=== PATIENT | female | born 1990 | race Caucasian/White ===

== ENCOUNTER 2023-07-21 10:28 | Inpatient (IN) ==
[2023-07-21] MEDS ORDERED: Lidocaine 1% VIAL 10 MG/ML 30 ML VIAL INJ PRN (13:16)
[2023-07-21] MEDS ORDERED: Lactated Ringers 1000 ml BAG 1,000 ML IV ONE (13:16)
[2023-07-21] MEDS ORDERED: Buffered Lidocaine 1% SYRIN 1 ml INTRADERM ONE (13:16)
[2023-07-21] MEDS ORDERED: Lactated Ringers 1000 ml BAG 1,000 ML IV SCH (14:00)
[2023-07-21 15:00] LABS: Urine Benzodiazepine Screen None Detected (None Detect); Urine Cannabinoids Screen None Detected (None Detect); Urine Opiates Screen None Detected (None Detect)
[2023-07-21] MEDS ORDERED: Oxytocin in LR 20,000 MILLI.UNIT/1,000 ML BAG IV SCH (15:45)
[2023-07-21] MEDS ORDERED: Ondansetron 4 mg VIAL 2 MG/ML 2 ml VIAL IV PRN (16:52)
[2023-07-21 16:54] LABS: ABS Basophils 0.1 10^3/uL (0.0-0.1); ABS Eosinophils 0.2 10^3/uL (0.0-0.5); ABS Lymphocytes 2.2 10^3/uL (1.0-4.8); ABS Monocytes 0.9 10^3/uL (0.0-0.9); ABS Nucleated RBC 0.01 10^3/ul; Eosinophil % 1.5 %; Hemoglobin 14.3 g/dL (11.5-14.3); Lymphocyte % 19.6 %; Mean Corpuscular Hemoglobin 30.6 pg (27-33); Mean Corpuscular Hgb Conc 34.1 g/dL (31-36); Mean Corpuscular Volume 89.9 fL (80-97); Mean Platelet Volume 8.8 fL (7.5-11.2); Nucleated Red Blood Cells % 0.1 %/100WBC (0.0-0.8); Platelet Count 237 10^3/uL (150-450); Red Blood Count 4.67 10^6/uL (3.63-4.92); Red Cell Distribution Width 12.7 % (12-17); White Blood Count 11.4 10^3/uL (3.8-11.8)
[2023-07-21] MEDS: ONDANSETRON 4 MG PO PRN (18:23)
[2023-07-22] MEDS: ONDANSETRON 4 MG PO PRN (00:27)
[2023-07-22] MEDS ORDERED: Glycerin ADULT 2.4 gm SUPP PR PRN (00:41)
[2023-07-22] MEDS ORDERED: Witch Hazel PAD JAR TOPICAL PRN (00:41)
[2023-07-22] MEDS ORDERED: Dibucaine 1% OINT 28.35 GM TUBE PR PRN (00:41)
[2023-07-22] MEDS ORDERED: Lactated Ringers 1000 ml BAG 1,000 ML IV SCH (01:00)
[2023-07-23 07:34] LABS: ABS Basophils 0.1 10^3/uL (0.0-0.1); ABS Eosinophils 0.3 10^3/uL (0.0-0.5); ABS Lymphocytes 2.9 10^3/uL (1.0-4.8); ABS Monocytes 0.9 10^3/uL (0.0-0.9); ABS Neutrophils 7.6 10^3/uL (1.5-7.6); Eosinophil % 2.7 %; Hemoglobin 13.1 g/dL (11.5-14.3); Lymphocyte % 24.9 %; Mean Corpuscular Hemoglobin 30.5 pg (27-33); Mean Corpuscular Hgb Conc 33.5 g/dL (31-36); Mean Corpuscular Volume 90.9 fL (80-97); Mean Platelet Volume 8.4 fL (7.5-11.2); Platelet Count 228 10^3/uL (150-450); Red Blood Count 4.29 10^6/uL (3.63-4.92); Red Cell Distribution Width 12.9 % (12-17); White Blood Count 11.8 10^3/uL (3.8-11.8)
[2023-07-23 11:47] VITALS: BP 118/63
== END 2023-07-23 13:00 | disposition home or self-care (01) | DRG 560 ==
LOC: MCHOBOUT 10:28 → MCHOB 11:22
PROVIDERS: ADMIT Midwife; ATTEND Midwife